=== PATIENT | male | born 1945 | race Caucasian/White ===

== ENCOUNTER 2017-02-07 06:28 | Day surgery (SDC) | payer MEDICARE ==
[~2017-02-07] VITALS: Ht 182.9 cm; Wt 104.3 kg
[~2017-02-07 06:28] MED LIST: AUGMENTIN 875-1 EACH PO; CLOTRIMAZOLE-BE15 GM TOP; DICLOFENAC SODI75 MG PO; FLOVENT DISKUS50 MCG INH; KETOCONAZOLE120 ML TOP; METHYLPREDNISOLO4 M1 PO; NORCO 5-325 TA1 EACH PO; NYSTATIN-TRIAMC15 GM TOP; TRIAMCINOLONE A15 G1 TOP; ULTRAM50 MG PO
[2017-02-07] MEDS ORDERED: LIPITOR40 MG PO (07:45)
--- NOTE | 2017-02-07 08:59 | NUR ---
02/07/17 0859 Kristina Mcduffie 0845-PATIENT ARRIVED TO PACU ON 3L NC O2 SAT 100% REACTIVE EYES OPEN DROWSY. 0855-WEANED TO RA O2 SAT 96% PATIENT DROWSY DENIES PAIN OR NAUSEA.
--- NOTE | 2017-02-07 16:39 | OR ---
[facility] [address] [place], [place] [address] Signed DATE OF OPERATION: 02/07/2017 SURGEON: Isak Rosas MD PREOPERATIVE DIAGNOSES: 1. Epigastric pain. 2. History of Hill repair for reflux, 2007. 3. Known Puga's esophagus. POSTOPERATIVE DIAGNOSES: 1. Puga's esophagus without apparent change. 2. Intact flap valve. 3. Diffuse chronic gastritis. PROCEDURE: Esophagogastroduodenoscopy with biopsy. SURGEON: Isak Rosas MD ANESTHESIA: Intravenous sedation, Fentanyl 100 mcg, Versed 4 mg. INDICATION: A 71-year-old white man, a patient of Dr. Rodriguez underwent Hill repair by [place] in 2007 for intractable reflux. He has had surveillance endoscopy as he does have Puga's esophagus demonstrated in the past without dysplasia. He has in more recent times, developed persistent epigastric pain. He does drink alcohol on a daily basis, but is not known to take nonsteroidal medication routinely. He is here to undergo upper endoscopy to characterize the problem. He understands the risks of bleeding, infection, perforation and wished to proceed. FINDINGS: Esophagus showed Puga's epithelium, but no sign of stricture, neoplasm, or gross evidence of malignancy in any way. The flap valve was intact. There was diffuse chronic gastritis, but no sign of ulcer. Duodenum was inflamed as well, but again no ulcer. CLOtest was negative. DESCRIPTION OF PROCEDURE: The patient was brought to the endoscopy suite and placed in lateral decubitus position after undergoing topical Hurricaine spray, hypopharyngeal anesthesia. He was given intravenous sedation to the point of slurred speech and nystagmus with full cardiopulmonary monitoring. A bite block was placed. An Olympus video upper endoscope was passed in the hypopharynx. The vocal cords and tyler-arytenoid tissue appeared normal. Scope was advanced to the esophagus. It is normal throughout except for Puga's epithelium in the distal portion. Electronically Signed By: ISAK ROSAS MD 02/07/17 1639 PATIENT NAME: AFTAB FORMAN OPERATIVE REPORT DATE OF : 45 PHYSICIAN: ISAK ROSAS MD REPORT #: [id number] REPORT IS CONFIDENTIAL AND NOT TO BE RELEASED WITHOUT AUTHORIZATION [facility] [address] [place], [place] [address] Signed There is no sign of inflammatory change particularly no ulceration or stricture. The scope was passed in the stomach, which was insufflated with air. Rugal folds were slightly effaced. There appeared to be diffuse chronic gastritis. There was no sign of ulcer. Pylorus was normal. Scope was passed through into the duodenum. The duodenum had mild chronic inflammatory change. Biopsies were obtained. The scope was withdrawn to the antrum. Biopsies were taken on both the proximal and distal stomach for both JOSE and pathologic testing. Retroflex views undertaken showing an intact flap valve consistent with repair. The scope was withdrawn to the distal esophagus. Narrow band imaging was used to better image the Puga's epithelium. Biopsies were taken throughout and extensively. The scope was further withdrawn. A biopsy was taken of the midesophagus as well. The scope was removed. There was no sign of Puga's epithelium more proximally. He was taken to the recovery room in good condition. CONCLUDING DIAGNOSIS: Symptoms most likely related to chronic gastritis. No evidence of flap valve degradation to account for reflux or anything of that sort. Puga's epithelium grossly unchanged. Biopsies pending. He has risk factors for his gastritis to include chronic alcohol use. I would have him stop alcohol as much as possible. Avoid non-steroidal's including Motrin and aspirin and begin Carafate 1 g p.o. q.i.d. on empty stomach. He will see us back in about eight weeks. MD AMY Brown/DANIELLEL /[id number] cc: Gumaro Rodriguez MD Electronically Signed By: ISAK ROSAS MD 02/07/17 1639 PATIENT NAME: AFTAB FORMAN OPERATIVE REPORT DATE OF : 45 PHYSICIAN: ISAK ROSAS MD REPORT #: [id number] REPORT IS CONFIDENTIAL AND NOT TO BE RELEASED WITHOUT AUTHORIZATION
== END 2017-02-07 09:35 | disposition home or self-care (01) ==
LOC: DS 06:28 → OPS 06:28 → DS 08:00 → OPS 08:00
PROVIDERS: Surgery
PROC: 0DB78ZX Excision of Stomach, Pylorus, Via Natural or Artificial Opening Endoscopic, Diagnostic (ICD-10-PCS; 2017-02-07)
PROC: 0DB68ZX Excision of Stomach, Via Natural or Artificial Opening Endoscopic, Diagnostic (ICD-10-PCS; 2017-02-07)
PROC: 0DB28ZX Excision of Middle Esophagus, Via Natural or Artificial Opening Endoscopic, Diagnostic (ICD-10-PCS; 2017-02-07)
PROC: 0DB38ZX Excision of Lower Esophagus, Via Natural or Artificial Opening Endoscopic, Diagnostic (ICD-10-PCS; 2017-02-07)
PROC: 0DB98ZX Excision of Duodenum, Via Natural or Artificial Opening Endoscopic, Diagnostic (ICD-10-PCS; principal; 2017-02-07 08:00)
DX: K29.50 Unspecified chronic gastritis without bleeding (principal); K20.9 Esophagitis, unspecified; K29.80 Duodenitis without bleeding; J44.9 Chronic obstructive pulmonary disease, unspecified; Z96.643 Presence of artificial hip joint, bilateral; Z85.828 Personal history of other malignant neoplasm of skin; Z87.891 Personal history of nicotine dependence; Z98.890 Other specified postprocedural states; Z79.899 Other long term (current) drug therapy
CPT/HCPCS: 88305; 88342; 99152; 99153; J0690; J2250; J3010; J7120

== ENCOUNTER 2018-06-05 09:04 | Day surgery (SDC) | payer MEDICARE, OTHER ==
[~2018-06-05] VITALS: Ht 182.9 cm; Wt 108.0 kg
[~2018-06-05 09:04] MED LIST changes: +LIPITOR40 MG PO
[2018-06-05] MEDS ORDERED: PREVACID30 MG PO (09:42)
--- NOTE | 2018-06-05 12:46 | NUR ---
PT HAS BEEN UP TO BR SEVERAL TIMES. OFFERED WARM BLANKET AND DECLINES. IV PATENT. BEEN UPDATED ON WAIT HRLY. IMPATIENT BUT SAYS OK TO WAIT.
--- NOTE | 2018-06-05 13:48 | NUR ---
06/05/18 1348 Amira Putnam 1348 PATIENT ARRRIVES TO PACU AWAKE, BUT SLEEPY. RESP EVEN AND UNLABORED, NC AT 3 LITERS TURNED OFF. ROOM AIR SATS >90%. PATIENT DENIES PAIN OR NAUSEA.
--- NOTE | 2018-06-06 10:22 | OR ---
[facility] [address] [place], [place] [address] Signed DATE OF OPERATION: 06/05/2018 SURGEON: Isak Rosas MD PREOPERATIVE DIAGNOSES: 1. Episodic painless rectal bleeding. 2. History of polyps. POSTOPERATIVE DIAGNOSES: 1. Internal hemorrhoids (likely source of bleeding). 2. Sigmoid diverticulosis. 3. Polyps x2. PROCEDURE: Total colonoscopy to cecum with cold morcellation polypectomy x1 and cold snare polypectomy x1. ANESTHESIA: Intravenous sedation, fentanyl 100 mcg, Versed 6 mg. INDICATION: This 73-year-old white man is a patient of Dr. Rodriguez and well known to me from the past. He has had complaints of painless rectal bleeding. He has history of polyps as well. He has undergone colonoscopy in the past. The last colonoscopy was in 2007 (11 years ago). He is admitted at this time to undergo colonoscopy. He understands the risks of bleeding, infection, and perforation. Notably on our visit of April 23, 2018, he underwent anoscopy and hemorrhoidal banding x2. He has not recently had much if any rectal bleeding. FINDINGS: The prep was excellent. Complete colonoscopy was undertaken to the cecum. He had diverticular changes of sigmoid and left colon and two small polyps, both excised. Internal hemorrhoidal changes were noted, but there was no sign of recent bleeding or other issue. DESCRIPTION OF PROCEDURE: The patient was brought to the endoscopy suite and placed in lateral decubitus position and given intravenous sedation to the point of slurred speech and nystagmus. Digital rectal examination was normal. Electronically Signed By: ISAK ROSAS MD 06/06/18 1022 PATIENT NAME: AFTAB FORMAN OPERATIVE REPORT DATE OF : 45 REPORT #: [id number] PHYSICIAN: ISAK ROSAS MD PCP: FUAD RODRIGUEZ MD REPORT IS CONFIDENTIAL AND NOT TO BE RELEASED WITHOUT AUTHORIZATION [facility] [address] [place], [place] [address] Signed An Olympus video colonoscope was passed in the rectum and manipulated throughout the colon ultimately intubating the cecum itself. The ileocecal valve and appendiceal orifice were normal. Diverticula had been seen in the sigmoid and left colon. Scope was withdrawn from that point. In the proximal ascending colon was a small polyp that was probably adenomatous. It was excised with cold morcellation technique rather easily. The scope was further withdrawn. Remaining colon was normal except for diverticulosis until the rectosigmoid where a somewhat larger polyp was noted. This was excised with snare technique without electrocautery. It likely was hyperplastic. It was passed for pathology as well. Retroflexed view showed some evidence of internal hemorrhoidal change. No sign of active bleeding. He was taken to the recovery room in good condition. CONCLUDING DIAGNOSIS: Bleeding most likely related to internal hemorrhoids. Incidental finding of diverticulosis and two polyps (excised). PLAN: To take Citrucel 1 tablespoon daily. If recurrent bleeding, to see me back for consideration of hemorrhoidal banding at that point. MD AMY Brown/MADISON /[id number] cc: Fuad Rodriguez MD Copies: FUAD RODRIGUEZ MD ~ Electronically Signed By: ISAK ROSAS MD 06/06/18 1022 PATIENT NAME: AFTAB FORMAN OPERATIVE REPORT DATE OF : 45 REPORT #: [id number] PHYSICIAN: ISAK ROSAS MD PCP: FUAD RODRIGUEZ MD REPORT IS CONFIDENTIAL AND NOT TO BE RELEASED WITHOUT AUTHORIZATION
== END 2018-06-05 14:25 | disposition home or self-care (01) ==
LOC: OPS 09:04 → DS 09:04 → OPS 10:30 → DS 10:30 → OPS 11:00
PROVIDERS: Surgery
PROC: 0DBP8ZZ Excision of Rectum, Via Natural or Artificial Opening Endoscopic (ICD-10-PCS; 2018-06-05)
PROC: 0DBN8ZZ Excision of Sigmoid Colon, Via Natural or Artificial Opening Endoscopic (ICD-10-PCS; 2018-06-05)
PROC: 0DBK8ZZ Excision of Ascending Colon, Via Natural or Artificial Opening Endoscopic (ICD-10-PCS; principal; 2018-06-05 11:00)
DX: D12.8 Benign neoplasm of rectum (principal); K63.5 Polyp of colon; K64.8 Other hemorrhoids; K57.30 Diverticulosis of large intestine without perforation or abscess without bleeding; I10 Essential (primary) hypertension; J44.9 Chronic obstructive pulmonary disease, unspecified; K21.9 Gastro-esophageal reflux disease without esophagitis; E66.9 Obesity, unspecified; Z86.010 Personal history of colon polyps; Z87.891 Personal history of nicotine dependence; Z86.73 Personal history of transient ischemic attack (TIA), and cerebral infarction without residual deficits
CPT/HCPCS: 99153; G0500; J0690; J2250; J3010; J7120

== ENCOUNTER 2021-12-28 05:40 | Day surgery (SDC) | payer MEDICARE, OTHER ==
[~2021-12-28] VITALS: Ht 170.2 cm; Wt 102.5 kg
[~2021-12-28 05:40] MED LIST changes: +FLOMAX0.4 MG PO; +GLUCOSAMINE CH1 EAC7 PO; +KEFLEX500 MG PO; +MELATONIN1 M2 PO; +MULTI VITAMIN1 EACH PO; +PREVACID30 MG PO
[2021-12-28] MEDS ORDERED: OXYBUTYNIN CHLOR5 MG PO (06:01)
[2021-12-28] MEDS ORDERED: LIPITOR10 MG (06:01)
--- NOTE | 2021-12-28 09:16 | NUR ---
12/28/21 0916 Valerie Mchugh 0826: DR. ROSAS AT BEDSIDE TALKING WITH PATIENT. 0830: O2 TURNED OFF. PATIENT ON ROOM AIR. 0845: DISCHARGE INSTRUCTIONS GIVEN TO PATIENT. 0850: PATIENT ASSISTED TO GET DRESSED. 0856: PATIENT DISCHARGED TO HOME VIA WHEELCHAIR.
--- NOTE | 2022-01-01 19:03 | OR ---
[facility] [address] [place], [place] [address] Signed DATE OF OPERATION: 12/28/2021 SURGEON: Isak Rosas MD PREOPERATIVE DIAGNOSES: 1. Fecal urgency. 2. History of Puga esophagus, status post Hill posterior gastropexy in 2005. POSTOPERATIVE DIAGNOSES: 1. Intact flap valve; minimal Puga epithelium of esophagus. 2. Antral gastritis. 3. Diverticulosis of colon, no evidence of colitis or polyps. PROCEDURES: 1. Esophagogastroduodenoscopy with biopsy. 2. Total colonoscopy to cecum with biopsy of rectum. ANESTHESIA: Intravenous sedation, fentanyl 100 mcg and Versed 4 mg. INDICATIONS: This 76-year-old white man is a patient of Dr. Rodriguez and well known to me from the past. He underwent colonoscopy in 2019, which showed adenomatous and hyperplastic polyps. In addition, he underwent Hill posterior gastropexy for gastroesophageal reflux by me in 2005. He is known to have had Puga esophagus. He is admitted to undergo colonoscopy and upper endoscopy to better characterize his current status regarding Puga epithelium as well as colonoscopy to assess for fecal urgency and diarrhea type symptoms. He understands the risks of bleeding, infection, and perforation related to upper endoscopy and colonoscopy and wished to proceed. FINDINGS: Upper endoscopy showed an intact flap valve. He had mild antral gastritis. There was Puga epithelium evidence of the distal esophagus, for which biopsies were obtained. CLOtest was negative. On colonoscopy, the prep was good. Complete colonoscopy was undertaken to the cecum without question. He had numerous diverticula of the sigmoid and left colon. He had no polyps or colitis. Biopsies were taken of the rectum to assess for microscopic colitis. DESCRIPTION OF PROCEDURE: Electronically Signed By: ISAK ROSAS MD 01/01/22 1903 PATIENT NAME: AFTAB FORMAN OPERATIVE REPORT DATE OF : 45 REPORT #: [id number] PHYSICIAN: ISAK ROASS MD PCP: FUAD RODRIGUEZ MD REPORT IS CONFIDENTIAL AND NOT TO BE RELEASED WITHOUT AUTHORIZATION [facility] [address] [place], [place] [address] Signed The patient was brought to the endoscopy suite and placed in lateral decubitus position, given lidocaine hypopharyngeal topical anesthesia. He was given intravenous sedation to the point of slurred speech and nystagmus with full cardiopulmonary monitoring. A bite block was placed. An Olympus video upper endoscope was passed into the hypopharynx. The vocal cords were normal. Scope was advanced to the esophagus, throughout its length it was normal except in the distal portion where there were several islands of Puga epithelium, but no sign of stricture, neoplasm, or other abnormality. The scope was advanced to the stomach, which was insufflated with air. Rugal folds were normal. There was antral gastritis. The pylorus was normal. Scope was passed through into the duodenum, which was normal. Biopsies were obtained there to assess for celiac disease. The scope was withdrawn. A biopsy was then taken of the antrum for both JOSE and pathologic testing. Retroflexed view was undertaken confirming an intact flap valve. Various maneuvers were made to thwart its barrier effect, which showed the flap valve to be intact. Scope was straightened and withdrawn and biopsies then taken of small islands of Puga epithelium in the distal esophagus. Further withdrawal out for biopsy of the middle esophagus. Scope was withdrawn and removed. Plans were then made for colonoscopy. Digital rectal examination was found to be normal. Additional sedation was given. An Olympus video colonoscope was passed into the rectum and manipulated throughout the colon noting diverticular change of the sigmoid and left colon. The scope was ultimately passed to the cecum. Ileocecal valve and appendiceal orifice were normal. Scope was withdrawn and careful examination showed no sign of abnormality other than diverticulosis. Retroflexed view of the rectum was normal. Biopsies were taken the rectum to assess for microscopic colitis. The scope was removed. The patient was taken to the recovery room in good condition. CONCLUDING DIAGNOSES: 1. Minimal Puga epithelium, intact flap valve, following Hill repair in 2005. 2. Antral gastritis. 3. Diverticulosis, no sign of colitis. PLAN: Recommend high-fiber diet and/or Citrucel one scoop p.o. daily. We would recommend repeat upper endoscopy in 3-5 years based on the Puga findings. He will return to the ongoing care of Dr. Rodriguez. Isak Rosas MD Electronically Signed By: ISAK ROSAS MD 01/01/22 190 PATIENT NAME: AFTAB FORMAN OPERATIVE REPORT DATE OF : 45 REPORT #: [id number] PHYSICIAN: ISAK ROSAS MD PCP: FUAD RODRIGUEZ MD REPORT IS CONFIDENTIAL AND NOT TO BE RELEASED WITHOUT AUTHORIZATION [facility] [address] [place], [place] [address] Signed /MADISON /[id number] cc: Dr. Rodriguez Copies: ~ Electronically Signed By: ISAK ROSAS MD 01/01/22 1903 PATIENT NAME: AFTAB FORMAN OPERATIVE REPORT DATE OF : 45 REPORT #: [id number] PHYSICIAN: ISAK ROSAS MD PCP: FUAD RODRIGUEZ MD REPORT IS CONFIDENTIAL AND NOT TO BE RELEASED WITHOUT AUTHORIZATION
--- NOTE | 2022-01-03 14:36 | PATH ---
[facility] [address] [facility] [place] [address] Signed THIS IS AN ADDENDUM REPORT SPECIMEN(S): A DUODENAL BIOPSY SPECIMEN(S): B ANTRUM/PYLORUS BIOPSY SPECIMEN(S): C DISTAL LOWER ESOPHAGEAL BIOPSY SPECIMEN(S): D MIDDLE ESOPHAGEAL BIOPSY SPECIMEN(S): E RECTUM SPECIMEN SOURCE: A. DUODENAL BIOPSY B. ANTRUM/PYLORUS BIOPSY C. DISTAL LOWER ESOPHAGEAL BIOPSY D. MIDDLE ESOPHAGEAL BIOPSY E. RECTUM CLINICAL HISTORY: Colonoscopy/EGD. History of GERD, Puga's. Post: Mild gastritis, Puga's esophagus, diverticulosis. FINAL PATHOLOGIC DIAGNOSIS: A. Duodenum, biopsy: - Peptic duodenitis. B. Antrum/pylorus, biopsy: - No significant histopathologic alterations. C. Distal lower esophagus, biopsy: - Puga's esophagus. - Puga's epithelium focally present under squamous epithelium. - No evidence of dysplasia. D. Middle esophagus, biopsy: - Portions of unremarkable squamous mucosa. E. Rectum, biopsy: - No significant histopathologic alterations. COMMENT: Regarding specimen A, sections show a chronic active duodenitis, Arianna gland hyperplasia and focal foveolar metaplasia. These findings are consistent with the diagnosis of peptic duodenitis. Long fingerlike villi are present and there is no villous atrophy or crypt hyperplasia. There is no evidence of microorganisms, abnormal infiltrates or neoplasia. Regarding specimen B, the sections through the gastric biopsies show fragments PATIENT NAME: AFTAB FORMAN PATHOLOGY DATE OF : 45 REPORT #: [id number] PHYSICIAN: ACACIA ANDUJAR PCP: FUAD LOZA MD REPORT IS CONFIDENTIAL AND NOT TO BE RELEASED WITHOUT AUTHORIZATION [facility] [address] [place], [place] [address] Signed of histologically unremarkable antral and oxyntic mucosa. There is no evidence of acute or chronic inflammation. There is no evidence of H. pylori, intestinal metaplasia, abnormal infiltrates or neoplasia. Regarding specimen C, the sections through the biopsy show the presence of both squamous and glandular mucosa. The squamous epithelium appears reactive. The areas of glandular mucosa contain specialized intestinal epithelium including the presence of goblet cells. There is no evidence of dysplasia or malignancy. There are areas of Puga's epithelium located under the squamous epithelium. This raises the possibility of a more extensive lesion than appreciated endoscopically. There is no evidence of H. pylori associated with the glandular mucosa. Regarding specimen D, the esophageal biopsy shows normal-appearing squamous epithelium. There is no evidence of acute or chronic inflammation. Regarding specimen E, the sections from the specimen are architecturally normal without crypt distortion. There is no acute or chronic inflammation. There is no evidence of microscopic colitis. There are no abnormal organisms or infiltrates. There is no evidence of polyps or neoplasia. TWK:caw:C2NR MICROSCOPIC EXAMINATION: Histologic sections of all submitted blocks are examined by light microscopy. These findings, together with the gross examination, support the pathologic diagnosis. GROSS DESCRIPTION: Five specimens are received in five containers, labeled "RH." A. The specimen, labeled "RH, duodenum biopsy," is received in formalin and consists of one bardales soft tissue fragment that measures 0.2 cm in greatest dimension. The specimen is entirely submitted in cassette (A1). B. The specimen, labeled "RH, antrum/pylorus biopsy," is received in formalin and consists of three bardales soft tissue fragments that measure 0.2-0.4 cm in greatest dimension. The specimen is entirely submitted in cassette (B1). C. The specimen, labeled "RH, distal lower esophagus," is received in formalin and consists of five bardales soft tissue fragments that measure 0.5 cm in greatest dimension. The specimen is entirely submitted in cassette (C1). PATIENT NAME: AFTAB FORMAN PATHOLOGY DATE OF : 45 REPORT #: [id number] PHYSICIAN: ACACIA ANDUJAR PCP: FUAD LOZA MD REPORT IS CONFIDENTIAL AND NOT TO BE RELEASED WITHOUT AUTHORIZATION [facility] [address] [place], [place] [address] Signed D. The specimen, labeled "RH, middle esophagus biopsy," is received in formalin and consists of two bardales soft tissue fragments that measure 0.3 cm in greatest dimension. The specimen is entirely submitted in cassette (D1). E. The specimen, labeled "RH, rectum biopsy," is received in formalin and consists of three bardales soft tissue fragments that measure 0.1-0.3 cm in greatest dimension. The specimen is entirely submitted in cassette (E1). JS (under the direct supervision of a pathologist) The Gross Description was prepared using a voice recognition system. The report was reviewed for accuracy; however, sound-alike word errors, addition and/or deletions may occur. If there is any question about this report, please contact Client Services. PERFORMING LABORATORY: The technical component was performed by [facility], [address] [place] [id number] (CLIA# [id number]). The professional interpretation was performed by [facility], [facility], [address] [place] [address] (CLIA#: [id number]). ADDITIONAL NOTES: Immunohistochemical and/or in situ hybridization studies were performed on this case with the appropriate positive controls that react as expected. This test was developed and its performance characteristics determined by [facility]. It has not been cleared or approved by the U.S. Food and Drug Administration. The FDA has determined that such clearance or approval is not necessary. This test is used for clinical purposes. It should not be regarded as investigational or for research. [facility] is certified under the Clinical Laboratory Improvement Amendments of 1988 (CLIA) as qualified to perform high complexity clinical laboratory testing. This assay has not been validated for specimens that have been decalcified. REASON FOR ADDENDUM: To add results of immunohistochemistry on specimen B. ADDENDUM COMMENT: Helicobacter pylori immunohistochemical stain is negative. Control slide stained appropriately positive. There is no change in the above diagnosis. PATIENT NAME: AFTAB FORMAN PATHOLOGY DATE OF : 45 REPORT #: [id number] PHYSICIAN: ACACIA ANDUJAR PCP: FUAD LOZA MD REPORT IS CONFIDENTIAL AND NOT TO BE RELEASED WITHOUT AUTHORIZATION [facility] [address] [place], [place] [address] Signed TWK:steve Diagnostician: Esteban Enciso MD Pathologist Electronically Signed 01/03/2022 Copies: ~ PATIENT NAME: FORMANAFTAB PATHOLOGY DATE OF : 45 REPORT #: [id number] PHYSICIAN: ACACIA PATHOLOGY PCP: FUAD LOZA MD REPORT IS CONFIDENTIAL AND NOT TO BE RELEASED WITHOUT AUTHORIZATION
== END 2021-12-28 08:56 | disposition home or self-care (01) ==
LOC: DS 05:40 → OPS 05:40 → DS 07:30 → OPS 08:56
PROVIDERS: ATTEND Surgery
PROC: 0DB38ZX Excision of Lower Esophagus, Via Natural or Artificial Opening Endoscopic, Diagnostic (ICD-10-PCS; principal; 2021-12-28 07:30)
PROC: 0DBP8ZX Excision of Rectum, Via Natural or Artificial Opening Endoscopic, Diagnostic (ICD-10-PCS; 2021-12-28 07:30)
DX: K29.80 Duodenitis without bleeding (principal); K29.70 Gastritis, unspecified, without bleeding; K22.70 Barrett's esophagus without dysplasia; K21.9 Gastro-esophageal reflux disease without esophagitis; K57.30 Diverticulosis of large intestine without perforation or abscess without bleeding; R15.2 Fecal urgency; I10 Essential (primary) hypertension; Z86.010 Personal history of colon polyps; K43.2 Incisional hernia without obstruction or gangrene; Z98.890 Other specified postprocedural states; J45.909 Unspecified asthma, uncomplicated; J44.9 Chronic obstructive pulmonary disease, unspecified; K64.9 Unspecified hemorrhoids
CPT/HCPCS: 88305; 88342; J0690; J2250; J3010; J7121

== ENCOUNTER 2023-03-22 10:41 | Emergency (ER) | payer MEDICARE, OTHER ==
[~2023-03-22] VITALS: Ht 180.3 cm; Wt 104.3 kg
[~2023-03-22 10:41] MED LIST changes: +LIPITOR10 MG; +OXYBUTYNIN CHLOR5 MG PO
[2023-03-22] MEDS ORDERED: PREDNISONE20 MG PO (12:57)
[2023-03-22] MEDS ORDERED: GUAIFEN-CODEINE10 ML PO (12:57)
[2023-03-22 13:12] VITALS: BP 152/81
== END 2023-03-22 13:10 | disposition home or self-care (01) ==
LOC: ED 10:41
DX: J40 Bronchitis, not specified as acute or chronic (principal); G47.30 Sleep apnea, unspecified; Z87.891 Personal history of nicotine dependence; Z79.899 Other long term (current) drug therapy
CPT/HCPCS: 94640; 94664; 99283-25; J7512